=== PATIENT | female | born 1980 | race Two or more races ===

== ENCOUNTER 2016-07-23 19:46 | Emergency (ER) | payer MEDICAID ==
[2016-07-23 20:36] LABS: SPECIFIC GRAVITY 1.015 (1.001-1.030); URINE BILIRUBIN NEGATIVE (NEGATIVE); URINE BLOOD NEGATIVE (NEGATIVE); URINE GLUCOSE (UA) NEGATIVE (NEGATIVE); URINE LEUKOCYTE ESTERASE NEGATIVE (NEGATIVE); URINE NITRITE NEGATIVE (NEGATIVE); URINE PROTEIN 1+ (NEGATIVE); URINE UROBILINOGEN 1 mg/dL (0-1 mg/dl)
[2016-07-23 20:39] LABS: HCG,QUALITATIVE URINE NEGATIVE; URINE APPEARANCE CLEAR; URINE COLOR YELLOW
[2016-07-23 20:45] LABS: URINE BACTERIA RARE; URINE EPITHELIAL CELLS 0-2 /hpf; URINE RBC 0 /hpf; URINE WBC 0-2 /hpf
[2016-07-23] MEDS ORDERED: ONDANSETRON 4 MG ODT TAB ONE (21:31)
[2016-07-23] MEDS ORDERED: PANTOPRAZOLE SODIUM 40 MG VIAL IV ONE (21:31)
[2016-07-23] MEDS ORDERED: MAALOX/LIDO2%VISC/SIMETHICONE 40 ML BOT ONE (21:31)
[2016-07-23 21:57] LABS: ABSOLUTE NEUTROPHIL COUNT 8.2 K/mm3 (1.8-7.7); BASO % 0.3 % (0.2-1.0); EOS # 0.1 (0.0-0.5); EOS % 0.5 % (0.9-2.9); HEMATOCRIT 39.8 % (37.0-47.0); IMM NEUT% 0.2 % (0-1); LYMPH # 2.1 (1.0-4.8); LYMPH % 18.6 % (15-45); MEAN CORPUSCULAR HEMOGLOBIN 31.3 pg (27.0-31.0); MEAN CORPUSCULAR HGB CONC 35.2 g/dl (33.0-37.0); MEAN PLATELET VOLUME 11.1 fl (7.4-10.4); MONO # 0.8 (0.0-0.8); MONO % 7.1 % (4-12); NEUT % 73.3 % (43-75); PLATELET COUNT 234 K/mm3 (130-400); RED CELL DISTRIBUTION WIDTH 11.5 % (11.5-14.5)
[2016-07-23 22:03] LABS: ALB/GLOB RATIO 1.1 (>1.0); ALBUMIN 3.8 gm/dL (3.5-5.7); CALCIUM 9.3 mg/dL (8.6-10.3)
--- NOTE | 2016-07-24 07:44 | US ---
ABDOMINAL-LIMITED: 07/23/2016 10:11 PM CLINICAL HISTORY: Right upper quadrant and midepigastric pain for one week. STUDY: Limited right upper quadrant ultrasound COMPARISON: none FINDINGS: Gallbladder: Wall thickness: Normal Cholelithiasis: Mobile multiple stones are present. Sludge is also seen. Pericholecystic Fluid: none Sonographic Drew's Sign: negative Bile ducts: Common bile duct measures upwards 7 mm. Limited visualized Liver and RUQ structures: normal IMPRESSION: Cholelithiasis without acute cholecystitis. Dilation of the common bile duct without definite findings of choledocholithiasis. Nuclear medicine scintigraphy, MRCP or ERCP could be helpful in further assessment as clinically warranted. Findings were called to Dr. Sanon at approximately 00 34 hours on 07/24/2016.
[2016-07-25] MEDS ORDERED: SODIUM CHLORIDE 0.9% 50 ML ONE (07:04)
[2016-07-25] MEDS ORDERED: LIDOCAINE 1%/EPI 1:100,000 (MULTI DOSE) 30 ML VIAL ONE (07:04)
== END 2016-07-24 08:34 | disposition home or self-care (01) ==
LOC: ED 19:46
DX: K80.20 Calculus of gallbladder without cholecystitis without obstruction (principal); R11.10 Vomiting, unspecified
CPT/HCPCS: 83690; 81025; 82150; 85025; 80053; 81001; 76705; 99283 ×2; 96374; A9270 ×2; C9113

== ENCOUNTER 2016-07-24 14:36 | Inpatient (IN) | payer MEDICAID ==
[2016-07-24] MEDS ORDERED: LACTATED RINGERS 1,000 ML ONE (15:44)
[2016-07-24] MEDS ORDERED: HYDROMORPHONE HCL 0.5 MG/0.5 ML SYRINGE ONE (15:44)
[2016-07-24 15:59] LABS: ABSOLUTE NEUTROPHIL COUNT 8.5 K/mm3 (1.8-7.7); BASO % 0.4 % (0.2-1.0); EOS # 0.1 (0.0-0.5); EOS % 0.8 % (0.9-2.9); HEMATOCRIT 42.5 % (37.0-47.0); HEMOGLOBIN 14.8 gm/l (12.0-16.0); IMM NEUT% 0.4 % (0-1); LYMPH # 1.5 (1.0-4.8); LYMPH % 13.9 % (15-45); MEAN CELL VOLUME 88.5 fl (81.0-99.0); MEAN CORPUSCULAR HEMOGLOBIN 30.8 pg (27.0-31.0); MEAN CORPUSCULAR HGB CONC 34.8 g/dl (33.0-37.0); MEAN PLATELET VOLUME 11.4 fl (7.4-10.4); MONO # 0.6 (0.0-0.8); MONO % 5.7 % (4-12); NEUT % 78.8 % (43-75); PLATELET COUNT 251 K/mm3 (130-400); RED CELL DISTRIBUTION WIDTH 11.6 % (11.5-14.5)
[2016-07-24 16:08] LABS: CALCIUM 9.6 mg/dL (8.6-10.3)
[2016-07-24] MEDS ORDERED: PIPERACILLIN-TAZO PREMIX BAG 50 ML IV ONE (16:48)
[2016-07-24] MEDS ORDERED: PIPERACILLIN SODIUM/TAZOBACTAM 3.375 G VIAL IV ONE (16:48)
[2016-07-24] MEDS ORDERED: HYDROMORPHONE HCL 1 MG/ML SYRINGE IV PRN (17:04)
[2016-07-24] MEDS ORDERED: MENTHOL/CETYLPYRD 1 EACH LOZENGE PO PRN (17:04)
[2016-07-24] MEDS ORDERED: BLISTEX LIPSTICK 1 EACH TP PRN (17:04)
[2016-07-24 17:07] LABS: SPECIFIC GRAVITY 1.015 (1.001-1.030); URINE BILIRUBIN NEGATIVE (NEGATIVE); URINE BLOOD TRACE (NEGATIVE); URINE GLUCOSE (UA) NEGATIVE (NEGATIVE); URINE LEUKOCYTE ESTERASE NEGATIVE (NEGATIVE); URINE NITRITE NEGATIVE (NEGATIVE); URINE PROTEIN 2+ (NEGATIVE); URINE UROBILINOGEN 1 mg/dL (0-1 mg/dl)
[2016-07-24 17:08] LABS: URINE APPEARANCE CLEAR; URINE COLOR DARK YELLOW
[2016-07-24] MEDS ORDERED: HYDROMORPHONE HCL 0.5 MG/0.5 ML SYRINGE IV PRN (17:11)
--- NOTE | 2016-07-24 17:11 | US ---
Exam: Gallbladder ultrasound COMPARISON: 07/23/2016 INDICATION: Right upper quadrant pain. FINDINGS: Gallbladder ultrasound was obtained. Stones and sludge are again identified within the gallbladder. Gallbladder wall thickness remains normal at 3 mm. There is no pericholecystic fluid. Drew's sign was reported as negative. Common bile duct remains mildly prominent at 7 mm. IMPRESSION: Stable exam since yesterday, demonstrating cholelithiasis without sonographic features of acute cholecystitis. Stable mild dilation of the common bile duct is 7 mm. Given patient's elevated bilirubin choledocholithiasis cannot be excluded. Report given to Dr. Benton at 1708 hours 07/24/2016.
[2016-07-24 17:15] LABS: URINE AMORPHOUS SEDIMENT FEW; URINE BACTERIA RARE; URINE RBC 0 /hpf; URINE WBC 0-2 /hpf
[2016-07-24 17:31] VITALS: BMI 33.3
--- NOTE | 2016-07-24 17:33 | PDOC1 ---
HPI: Date of Admission: 07/24/16 Chief Complaint: abdominal pain History of Present Illness: 36 y/o F with abdominal pain RUQ radiating to the back. Has had pain off and on several days and has had similar episodes in the past. She was in the emergency room earlier this week but w/o bilirubin or alk phos elevation. No signs of acute cholecystitis on US so sent home. Today has N/V. No F/C. Increase in pain. No complaints of diarrhea. No jaundice. No other complaints/issues. PMH: healthy PSH: none FH: reviewed and non-contributory SH: denies tobacco, denies ETOH, denies illicit drug use - Review of Systems Reports Nausea, Reports Vomiting, Denies Chest Pain, Denies Shortness of Breath , Denies Cough, Denies Sputum H&P Objective GS - Objective Laboratory Results - last 24 hr 07/24/16 16:57 Urine Color Dark yellow Urine Appearance Clear Urine pH 6.0 Ur Specific [place] 1.015 Urine Protein 2+ Urine Glucose (UA) Negative Urine Ketones Negative Urine Blood Trace Urine Nitrite Negative Urine Bilirubin Negative Urine Urobilinogen 1 mg/dl Ur Leukocyte Esterase Negative General: Alert, Oriented x3, Cooperative, No Acute Distress HEENT: Atraumatic, PERRLA, EOMI, Mucous membr. moist/pink Lungs: Clear to Auscultation Bilaterally, Normal Air Movement Cardiovascular: Regular Rate and Rhythm, Normal S1, Normal S2. negative: Murmur Abdomen: Soft, Tenderness (in RUQ, positive Drew's sign), Non-Distended, Normal Bowel Sounds Extremities: Normal Cap Refill, Normal Pulses. negative: Edema Skin: Normal Color, Warm, Dry, Intact Psych/Mental Status: Normal Affect, Normal Mood - Assessment/ Plan (1) Cholecystitis, acute with cholelithiasis Current Visit: Yes Status: Acute Code: K80.00The patient has acute cholecystitis with cholelithiasis possible duct stone will recheck labs in the morning if better will do a lap tammy with cholangiogram if same or worse I will do ERCP - Procedure, Risks, Alternatives, Question PARQ: N/A () I discussed the procedure of (). We discussed risks including bleeding, infection, injury to the () and possible need to (). I addressed the (patient's/family's/caregiver's) concerns and questions. The (patient/family/caregiver) expressed understanding and willingness to proceed.
[2016-07-24] MEDS ORDERED: PUMP TUBING ONE (18:20)
[2016-07-24] MEDS: LACTATED RINGERS 1,000 ML IV SCH (18:23)
[2016-07-24] MEDS: PIPERACILLIN-TAZO PREMIX BAG 3.375 G in Premix (D5W) 50 ml 1 EACH IV SCH (23:02)
[2016-07-25] MEDS: LACTATED RINGERS 1,000 ML IV SCH ×5 (02:34→18:03)
[2016-07-25] MEDS: PIPERACILLIN-TAZO PREMIX BAG 3.375 G in Premix (D5W) 50 ml 1 EACH IV SCH (05:15)
[2016-07-25 05:53] LABS: HEMATOCRIT 36.9 % (37.0-47.0); MEAN CELL VOLUME 89.3 fl (81.0-99.0); MEAN CORPUSCULAR HEMOGLOBIN 31.5 pg (27.0-31.0); MEAN CORPUSCULAR HGB CONC 35.2 g/dl (33.0-37.0); RED CELL DISTRIBUTION WIDTH 11.7 % (11.5-14.5)
[2016-07-25] MEDS ORDERED: MIDAZOLAM HCL 1 MG/ML 2ML VIAL ONE (06:12)
[2016-07-25] MEDS ORDERED: ROCURONIUM BROMIDE 10 MG/ML DOSE IV ONE ×5 (06:12)
[2016-07-25] MEDS ORDERED: PROPOFOL 20 ML IV ONE (06:12)
[2016-07-25] MEDS ORDERED: LIDOCAINE 2% (PRES FREE) 5 ML VIAL ONE (06:12)
[2016-07-25] MEDS ORDERED: FENTANYL 5 ML ONE (06:13)
[2016-07-25 06:16] LABS: ALB/GLOB RATIO 0.9 (>1.0); ALBUMIN 3.4 gm/dL (3.5-5.7); CALCIUM 9.1 mg/dL (8.6-10.3)
[2016-07-25] MEDS ORDERED: LIDOCAINE 1%/EPI (MULTI DOSE) 20 ML VIAL ONE (07:04)
[2016-07-25] MEDS ORDERED: SODIUM CHLORIDE 0.9% IV ONE (07:04)
[2016-07-25] MEDS ORDERED: ONDANSETRON 4 MG/2ML 2 ML VIAL ONE (07:29)
[2016-07-25] MEDS ORDERED: DIPHENHYDRAMINE HCL 50 MG/1 ML VIAL ONE (07:29)
[2016-07-25] MEDS ORDERED: DEXAMETHASONE SOD PHOS 4 MG/1 ML VIAL ONE (07:29)
[2016-07-25] MEDS ORDERED: HYDROMORPHONE HCL 2 MG/ML SYRINGE ONE (07:43)
[2016-07-25] MEDS ORDERED: GLYCOPYRROLATE 0.2 MG/ML 1ML VIAL ONE (07:49)
[2016-07-25] MEDS ORDERED: NEOSTIGMINE METHYLSULFATE 1 MG/ML DOSE ONE (07:49)
[2016-07-25] MEDS ORDERED: ONDANSETRON 4 MG/2ML 2 ML VIAL IV PRN ×2 (07:54→10:14)
[2016-07-25] MEDS ORDERED: PROMETHAZINE HCL 25 MG/ML VIAL IM PRN (07:54)
[2016-07-25] MEDS ORDERED: FENTANYL 100 MCG/2 ML VIAL IV PRN (07:54)
[2016-07-25] MEDS ORDERED: HYDROMORPHONE HCL 1 MG/ML SYRINGE IV PRN ×2 (07:54→10:14)
[2016-07-25] MEDS ORDERED: NALOXONE HCL 0.4 MG/ML VIAL IV PRN (07:54)
[2016-07-25] MEDS ORDERED: ATROPINE SULFATE 0.4 MG/1 ML VIAL IV PRN (07:54)
[2016-07-25] MEDS ORDERED: LACTATED RINGERS 1,000 ML IV SCH (08:00)
--- NOTE | 2016-07-25 09:16 | RAD ---
Exam: Intraoperative cholangiogram COMPARISON: Gallbladder ultrasound 07/24/2016 INDICATION: Cholecystectomy, elevated bilirubins. FINDINGS: Fluoroscopy was provided for Dr. Vieyra for intraoperative cholangiogram. 53.7 seconds of fluoroscopy time was utilized. 5 static images were submitted for interpretation. Cholecystectomy clips are present. There is a dilated common bile duct, with at least one intraluminal filling defect which could potentially reflect a calculus. Some extravasation of contrast was seen within the gallbladder fossa on the last images. IMPRESSION: Fluoroscopy was provided for Dr. Vieyra for intraoperative cholangiogram. Please see her notes for discussion.
[2016-07-25] MEDS ORDERED: BLISTEX LIPSTICK 1 EACH TP PRN (10:14)
[2016-07-25] MEDS ORDERED: MENTHOL/CETYLPYRD 1 EACH LOZENGE PO PRN (10:14)
[2016-07-25] MEDS ORDERED: HYDROMORPHONE HCL 0.5 MG/0.5 ML SYRINGE IV PRN (10:19)
[2016-07-25] MEDS ORDERED: PIPERACILLIN SODIUM/TAZOBACTAM 3.375 G in NS 0.9% (MINI-BAG PLUS) 50 ML IV SCH (11:00)
[2016-07-25] MEDS: PIPERACILLIN-TAZO PREMIX BAG 50 ML IV SCH ×2 (17:18→22:10)
[2016-07-26] MEDS: LACTATED RINGERS 1,000 ML IV SCH ×3 (00:35→09:19)
[2016-07-26 05:48] LABS: HEMATOCRIT 37.1 % (37.0-47.0); HEMOGLOBIN 12.8 gm/l (12.0-16.0); MEAN CELL VOLUME 89.4 fl (81.0-99.0); MEAN CORPUSCULAR HEMOGLOBIN 30.8 pg (27.0-31.0); MEAN CORPUSCULAR HGB CONC 34.5 g/dl (33.0-37.0); RED CELL DISTRIBUTION WIDTH 11.6 % (11.5-14.5)
[2016-07-26] MEDS: PIPERACILLIN-TAZO PREMIX BAG 50 ML IV SCH ×2 (05:48→10:43)
[2016-07-26 06:15] LABS: ALB/GLOB RATIO 1.1 (>1.0); ALBUMIN 3.3 gm/dL (3.5-5.7)
--- NOTE | 2016-07-26 10:48 | OP ---
Diamond Sow : 1980 [id number] DATE OF SERVICE: 07/25/2016 PREPROCEDURE DIAGNOSIS: Acute cholecystitis with cholelithiasis. POSTPROCEDURE DIAGNOSIS: Acute cholecystitis with cholelithiasis with choledocholithiasis. SURGEON: Dr. Susy Vieyra PRINCIPAL PROGRAMMER: Not applicable. PROCEDURE PERFORMED: Laparoscopic cholecystectomy with cholangiogram. ANESTHESIA: General. FINDINGS: Two large stones within the common duct, a very dilated duct. There was filling of the duodenum with the dye during the cholangiogram, but still two large stones were remained. TECHNIQUE: The patient was brought back to the operating room and placed under general anesthesia. The abdomen was prepped and draped in sterile surgical fashion. Local anesthetic was placed just to the right of the umbilicus and a 15 blade scalpel was used to make a less than 1 cm transverse incision. A 5 mm port with a 0 degree scope and insufflation was used to slowly enter the abdomen looking at all the layers as we went to make sure there was no damage to organs on entry. Insufflation pushed the abdominal contents away as soon as we entered the peritoneal cavity. Again, no damage to organs upon entry. We switched to a 30 degree scope and then placed an 11 mm port subxiphoid and two 5 mm ports in the right upper quadrant laterally under direct visualization. We grasped the gallbladder and pushed it superiorly. We used another grasper at the neck of the gallbladder for retraction, dissected out the cystic duct artery, and opened up the area to make sure there was no aberrant branching and these structures are clearly going into the gallbladder, then placed a clip distally towards the gallbladder side and made a óscar into the cystic duct, placed a cholangiocatheter with a balloon on it into the cystic duct and fed it down. I was having trouble feeling like I could get the balloon up, so I kept feeding it down and then ultimately got the balloon up, then turned fluoroscopy on, was injecting dye and I realized the balloon was all the way in the duodenum, so I deflated the balloon and pulled it back and injected dye into the common duct which was decently dilated and I noticed that there were two large stones within the common duct noted to be large enough that there was no way I could get them through the ampulla during this procedure, so I withdrew the cholangiocatheter and resumed the laparoscopic cholecystectomy. I placed two clips proximally on the cystic duct and divided that with EndoShears. I placed one clip distally and two proximally on the cyst artery and divided that with EndoShears and then I used a hook cautery to remove the gallbladder from the liver bed. When the gallbladder was almost off of the liver bed, I examined everything, cleaned out the bile around the liver bed with the suction irrigation. Once everything was nice and clear and there was no signs of oozing or bleeding I removed the gallbladder completely from the liver bed and placed it in the Endocatch bag. I pulled that out the subxiphoid port site, used a Manfred Agel and a 0 Vicryl to close the fascia at the subxiphoid port site and then closed the skin incisions with 4-0 Monocryl. Steri-Strips were applied and the patient was awakened and returned to recovery room in stable condition. All needle, instrument, and sponge counts were correct at the end of the case. JOB: [id number]
[2016-07-26] MEDS ORDERED: ROCURONIUM BROMIDE 10 MG/ML DOSE IV ONE (14:05)
[2016-07-26] MEDS ORDERED: PROPOFOL 20 ML IV ONE ×2 (14:05→15:56)
[2016-07-26] MEDS ORDERED: LIDOCAINE 2% (MULTI DOSE) 10 ML VIAL ONE ×2 (14:05)
[2016-07-26] MEDS ORDERED: MIDAZOLAM HCL 1 MG/ML 2ML VIAL ONE (14:07)
[2016-07-26] MEDS ORDERED: FENTANYL 100 MCG/2 ML VIAL ONE ×2 (14:07→14:52)
[2016-07-26] MEDS ORDERED: IOPAMIDOL 300 (61%) 100 ML VIAL ONE (14:19)
[2016-07-26] MEDS ORDERED: GLUCAGON,HUMAN RECOMBINANT 1 MG VIAL ONE (15:00)
[2016-07-26] MEDS ORDERED: NEOSTIGMINE METHYLSULFATE 1 MG/ML DOSE ONE (15:55)
[2016-07-26] MEDS ORDERED: GLYCOPYRROLATE 0.2 MG/ML 1ML VIAL ONE (15:55)
--- NOTE | 2016-07-26 16:20 | RAD ---
ERCP BILIARY DUCT COMPARISON: Intraoperative cholangiogram, 07/25/2016 HISTORY: Status post cholecystectomy with possible stone in a dilated common bile duct. Fluoroscopy time: 259.9 seconds FINDINGS: Common bile duct: +5 with contrast after catheterization. No filling defect. Common hepatic duct: No filling defect. Intrahepatic bile ducts: Not dilated. No filling defect. Duodenum: Not visible. Sphincter of Carlos: Normal-appearing IMPRESSION: 1. No visible stone in the common bile duct.
[2016-07-26] MEDS ORDERED: HYDROMORPHONE HCL 1 MG/ML SYRINGE IV PRN ×2 (16:30→16:47)
[2016-07-26] MEDS ORDERED: MEPERIDINE 25 MG/ML SYRINGE IV PRN (16:30)
[2016-07-26] MEDS ORDERED: FENTANYL 100 MCG/2 ML VIAL IV PRN (16:30)
[2016-07-26] MEDS ORDERED: PROMETHAZINE HCL 25 MG/ML VIAL IM PRN (16:30)
[2016-07-26] MEDS ORDERED: ATROPINE SULFATE 0.4 MG/1 ML VIAL IV PRN (16:30)
[2016-07-26] MEDS ORDERED: NALOXONE HCL 0.4 MG/ML VIAL IV PRN (16:30)
[2016-07-26] MEDS ORDERED: ONDANSETRON 4 MG/2ML 2 ML VIAL IV PRN ×2 (16:30→16:47)
[2016-07-26] MEDS ORDERED: LACTATED RINGERS 1,000 ML IV SCH ×2 (16:30→16:47)
[2016-07-26] MEDS ORDERED: OXYCODONE/ACETAMINOPHEN 5/325 MG TABLET PO PRN (16:47)
[2016-07-26] MEDS ORDERED: SODIUM CHLORIDE 0.9% FLUSH 10 ML ONE (17:16)
[2016-07-26 19:28] VITALS: BP 127/77
--- NOTE | 2016-07-29 10:46 | SURGPATH ---
[facility] [address] [place] [id number] Patient Name: MEGGAN GILES MR#: [id number] : 1980 Gender: F Specimen #: [id number] Collected: 07/25/2016 Received: 07/26/2016 Reported: 07/29/2016 Submitting Phys: BRANDAN PORTER Copy To Phys: [facility] Clinical History / Pre-Operative Diagnosis: ACUTE CHOLECYSTITIS Specimen Source / Surgical Procedure Performed: GALLBLADDER Interpretation: GALLBLADDER, CHOLECYSTECTOMY: - CHRONIC CHOLECYSTITIS AND CHOLELITHIASIS Electronically Signed Out Valentin Sanchez M.D. Gross Description: The specimen is received in a formalin filled container labeled with the patient's name and "gallbladder". An intact gallbladder is 9.0 by 3.0 cm. The serosa is smooth and pink-rowell. The wall averages 0.3 cm. The mucosa is rowell and velvety. There is no nodule or induration. The lumen contains a copious amount of inspissated, opaque green bile and four irregular, rowell to brown calculi up to 1.5 cm. Three patient relations representative sections are submitted in one cassette including a cross section through the cystic duct surgical margin, a central cross section and a longitudinal section through the fundus. Lisa Armendariz Microscopic Description: The slide contains portions of gallbladder with glands that extend into the fibromuscular wall. There is patchy chronic inflammation. Features of acute cholecystitis are not present. 1: [id number] K81.1
--- NOTE | 2016-07-29 12:41 | DS ---
PILAR DOTYMEGGAN [id number] : 1980 DATE OF ADMISSION: July 24, 2016 DATE OF DISCHARGE: July 26, 2016 ADMISSION DIAGNOSIS: Acute cholecystitis. DISCHARGE DIAGNOSIS: Acute cholecystitis with choledocholithiasis. PROCEDURES PERFORMED: 1. Laparoscopic cholecystectomy with cholangiogram. 2. Endoscopic retrograde cholangiopancreatography with sphincterotomy and stone extraction. CONSULTATIONS: None. HOSPITAL COURSE: This is a 36-year-old female who came in on July 24, 2016 with acute cholecystitis. She had her gallbladder out the next day. Her labs had improved so I thought she maybe had passed a stone. I did a cholangiogram just to make sure as her ducts were dilated, and it showed multiple large stones within her duct, but there was no way she was going to pass those on her own. She continued to have improved labs the next day but because of the cholangiogram, I did an endoscopic retrograde cholangiopancreatography, and there were stones that were removed on the endoscopic retrograde cholangiopancreatography. After the endoscopic retrograde cholangiopancreatography, she was able to be discharged home in good condition. She was given a prescription for Percocet for pain control, and she is to follow up in the office with me in two weeks.
== END 2016-07-26 19:47 | disposition home or self-care (01) | DRG 419 ==
LOC: ED 14:36 → MS 16:54 → UNDOADMIN 16:54 → MS 17:05 → SDC 17:05 → MS 07-25 10:08 → SDC 07-25 10:08 → MS 07-26 18:26
PROVIDERS: ADMIT Surgery; ATTEND Surgery
PROC: 0FT44ZZ Resection of Gallbladder, Percutaneous Endoscopic Approach (ICD-10-PCS; principal; 2016-07-25)
PROC: BF12YZZ Fluoroscopy of Gallbladder using Other Contrast (ICD-10-PCS; 2016-07-25)
DX: K80.43 Calculus of bile duct with acute cholecystitis with obstruction (principal)